=== PATIENT | female | born 1930 | race Caucasian/White ===

== ENCOUNTER 2017-02-21 12:13 | Inpatient (IN) | payer MEDICARE ==
[~2017-02-21] VITALS: Ht 172.7 cm; Wt 50.4 kg
[~2017-02-21 12:13] MED LIST: ACETAMINOPHEN325 MG PO; AMBIEN10 MG PO; AZELASTINE137 MCG/0. NASAL; BUMETANIDE0.5 MG PO; COUMADIN2.5 MG PO; COUMADIN5 MG PO; ELIQUIS2.5 MG PO; HYDROCODONE-APA1 TAB PO; METOPROLOL TART50 MG PO; PACERONE200 MG PO; PRAVACHOL80 MG PO; PROTONIX40 MG PO
[2017-02-21 13:54] LABS: BASOPHILS 0.1 % (0-2); EOSINOPHILS 1.1 % (0-7); HEMATOCRIT 35.2 % (36.0-48.0); IMMATURE GRANULOCYTES 0.2 % (0-5); LYMPHOCYTES 12.3 % (15-50); MCH 28.2 pg (26.0-34.0); MCHC 31.3 g/dL (31.0-37.0); MCV 90.3 fL (80.0-100.0); MEAN PLATELET VOLUME 8.3 fL (7.4-10.4); MONOCYTES 3.1 % (2-11); NEUTROPHILS 83.2 % (40-80); RDW 17.2 % (11.5-14.5); WBC 12.7 10x3/uL (4.8-10.8)
[2017-02-21 13:57] LABS: PLATELET COUNT 274 10x3/uL (130-400)
[2017-02-21 14:18] LABS: ALBUMIN 2.6 g/dL (3.4-5.0); ALKALINE PHOSPHATASE 121 U/L (46-116); ALT (SGPT) 22 U/L (10-68); BILIRUBIN - TOTAL 0.21 mg/dL (0.2-1.3); CALC OSMOLALITY 282 mosm/kg (275-300); CALCIUM 8.3 mg/dL (8.5-10.1); CARBON DIOXIDE 27.8 mmol/L (21.0-32.0); CHLORIDE - SERUM 106 mmol/L (98-107); CREATININE - SERUM 0.6 mg/dL (0.6-1.3); GLUCOSE 113 mg/dL (74-106); PROTEIN - SERUM 6.7 g/dL (6.4-8.2); SODIUM 141 mmol/L (136-145); UREA NITROGEN 14 mg/dL (7-18); eGFR NON AFRICAN AMERICAN > 90 mL/min (90-120)
[2017-02-21 14:36] LABS: CKMB 0.6 U/L (0.0-3.6); CREATINE KINASE 56 UL (21-215); TROPONIN-I < 0.017 ng/mL (0.000-0.060)
--- NOTE | 2017-02-21 21:53 | NUR ---
PT TO ROOM 1222 FROM ER VIA STRETCHER.PT IS WITHOUT DISTRESS.RIGHT ARM IN CAST.BRUISING NOTED TO LET HAND,LEFT EYE.ALSO BLOOD NOTED IN HAIR WITH ABRASIONS TO SCALP ON POSTERIOR HEAD.FAALL PREVENTION INITIATED.CALL LIGHT IN REACH.DOOR OPEN TO MONITOR.ASSESSMENT PER FLOW SHEET
[2017-02-21 22:04] VITALS: BP 129/59; BMI 17.6
[2017-02-22 05:23] LABS: BASOPHILS 0.2 % (0-2); EOSINOPHILS 1.2 % (0-7); HEMATOCRIT 32.2 % (36.0-48.0); IMMATURE GRANULOCYTES 0.2 % (0-5); LYMPHOCYTES 15.4 % (15-50); MCH 28.4 pg (26.0-34.0); MCHC 31.1 g/dL (31.0-37.0); MCV 91.5 fL (80.0-100.0); MEAN PLATELET VOLUME 8.3 fL (7.4-10.4); MONOCYTES 6.6 % (2-11); NEUTROPHILS 76.4 % (40-80); PLATELET COUNT 286 10x3/uL (130-400); RBC 3.52 10x6/uL (4.00-5.40); RDW 17.3 % (11.5-14.5); WBC 10.6 10x3/uL (4.8-10.8)
[2017-02-22 05:57] LABS: ALBUMIN 2.3 g/dL (3.4-5.0); ALKALINE PHOSPHATASE 109 U/L (46-116); ALT (SGPT) 19 U/L (10-68); BILIRUBIN - TOTAL 0.42 mg/dL (0.2-1.3); CALC OSMOLALITY 284 mosm/kg (275-300); CALCIUM 8.8 mg/dL (8.5-10.1); CARBON DIOXIDE 29.9 mmol/L (21.0-32.0); CHLORIDE - SERUM 106 mmol/L (98-107); CREATININE - SERUM 0.7 mg/dL (0.6-1.3); GLUCOSE 115 mg/dL (74-106); POTASSIUM - SERUM 3.9 mmol/L (3.5-5.1); PROTEIN - SERUM 6.7 g/dL (6.4-8.2); SODIUM 142 mmol/L (136-145); UREA NITROGEN 14 mg/dL (7-18); eGFR NON AFRICAN AMERICAN 84 mL/min (90-120)
--- NOTE | 2017-02-22 07:30 | NUR ---
INCONTINENT OF URINE. SKIN CARE PER STAFF. LINENS CHANGED. REPOSITIONED IN BED FOR COMFORT. LUNGS ARE CLEAR BILATERALLY, NO COUGH NOTED. SKIN IS INTACT WITHOUT REDNESS EXCEPT LACERATIONS TO LEFT EYE AND BACK OF HEAD. THERE IS ALSO AN OLD DECUB TO COCCYX AREA ALMOST HEALED WITH DRY DRESSING IN PLACE. SL TO LEFT FOREARM IS PATENT WITHOUT REDNESS AT INSERTION STIE. DENIES NEEDS AT THIS TIME.
[2017-02-22 08:26] VITALS: BP 115/50
--- NOTE | 2017-02-22 09:05 | NUR ---
REQUESTED AND GIVEN 0.5MG DILAUDID SLOW IVP FOR C/O PAIN TO RIGHT ARM LEVEL 8. WILL MONITOR.
--- NOTE | 2017-02-22 10:15 | NUR ---
REPORTS GOOD PAIN MANAGEMENT WITH USE OF DILAUDID. ASSISTED WITH BED GARZON PER STAFF. VOIDED DARK PAULINA ODIFEROUS URINE. SKIN CARE PER STAFF.
[2017-02-22 10:58] VITALS: Ht 172.7 cm; Wt 50.4 kg
--- NOTE | 2017-02-22 12:15 | NUR ---
LUNCH SERVED IN ROOM. FEEDS SELF WITH SOME SET UP ASSIST. DAUGHTER IN LAW AT BEDSIDE. SIGNED CONSENTS WITH PATIENTS PERMISSION.
--- NOTE | 2017-02-22 13:30 | NUR ---
HEAD SHAMPOOED TO REMOVE BLOOD. DID WELL WITH PAIN. REQUESTED AND GIVEN 0.5MG DILAUDID SLOW IVP AFTER COMPLETED. DENIES NEEDS.
[2017-02-22 16:40] VITALS: BP 133/60
--- NOTE | 2017-02-22 17:01 | NUR ---
REPORT CALLED TO IAM FARR RN ON MED SURG. WILL TRANSFER PATIENT TO ROOM 2234.
--- NOTE | 2017-02-22 17:29 | NUR ---
PT AOX4 RESP EVEN AND NONLABORED AT THIS TIME IV TO LEFT FOREARM PATENT AND INTACT AT THIS TIME SRX2 BED AT LOWEST SETTING CALL LIGHT WITHIN REACH WILL CONTINUE TO MONITOR
[2017-02-22 19:00] VITALS: BP 125/61
--- NOTE | 2017-02-22 23:17 | NUR ---
REC'D. CHGE OF SHIFT ASSISTED ON BEDPAN VOIDED WITHOUT DIFFICULTY.POSTERIOR SPLINT WITH ACEWRAP DRSG INTACT TO RIGHT ARM.VISIBLE FINGERS WITH MINIMAL SWELLING NOTED DENIES NUMBNESS WIGGLES ON COMMAND UP ON PILLOW, WILL CONTINUE TO MONITOR FOR ANY CHGES. IN NEUROVASCULAR STATUS AND FOLLOW CURRENT PLAN OF CARE.
[2017-02-23] VITALS (12 sets, daily range): BP systolic 109–187; BP diastolic 61–90
[2017-02-23 06:02] LABS: BASOPHILS 0.1 % (0-2); EOSINOPHILS 0.9 % (0-7); HEMATOCRIT 31.7 % (36.0-48.0); HEMOGLOBIN 9.9 g/dL (12-16); IMMATURE GRANULOCYTES 0.3 % (0-5); MCH 28.4 pg (26.0-34.0); MCHC 31.2 g/dL (31.0-37.0); MCV 91.1 fL (80.0-100.0); MEAN PLATELET VOLUME 8.5 fL (7.4-10.4); MONOCYTES 5.7 % (2-11); PLATELET COUNT 274 10x3/uL (130-400); RBC 3.48 10x6/uL (4.00-5.40); RDW 17.3 % (11.5-14.5)
[2017-02-23 06:12] LABS: WBC 14.5 10x3/uL (4.8-10.8)
[2017-02-23 06:46] LABS: ALBUMIN 2.3 g/dL (3.4-5.0); ALKALINE PHOSPHATASE 109 U/L (46-116); CALC OSMOLALITY 281 mosm/kg (275-300); CALCIUM 8.7 mg/dL (8.5-10.1); CHLORIDE - SERUM 104 mmol/L (98-107); CREATININE - SERUM 0.7 mg/dL (0.6-1.3); GLUCOSE 134 mg/dL (74-106); PROTEIN - SERUM 6.8 g/dL (6.4-8.2); SODIUM 140 mmol/L (136-145); UREA NITROGEN 14 mg/dL (7-18); eGFR NON AFRICAN AMERICAN 84 mL/min (90-120)
[2017-02-23 06:49] LABS: ALT (SGPT) 33 U/L (10-68)
--- NOTE | 2017-02-23 08:00 | NUR ---
PT AWAKE, DENIES NEEDS, LINENS AND GOWN CHANGED, BED LOWEST POSITION, CALL LIGHT IN REACH, WILL CONTINUE TO MONITOR
--- NOTE | 2017-02-23 08:31 | NUR ---
Patient Name: MARIAM ALFORD Admission Status: ER Accout number: [id number] Admission Date: 02-21-2017 : 1932 Admission Diagnosis: Attending: VEL MARTINS Current LOS: 2 Anticipated DC Date: 02-27-2017 Planned Disposition: Nursing Facility [facility] Primary Insurance: MEDICARE A & B Discharge Planning Comments: CM MET WITH PATIENT REGARDING D/C NEEDS AND PLANS. PATIENT STATED SHE LIVES AT [facility] AND WILL RETURN THERE AT DISCHARGE. PATIENT STATED SHE USES A WHEELCHAIR AT FACILITY. PATIENT HAS HELP WITH BATHING, DRESSING, TRANSFERRING, AND MEDS. PATIENTS PCP IS DR. ORELLANA AND PHARMACY IS IN HOUSE. CM WILL CONTINUE TO FOLLOW PATIENT WITH D/C NEEDS AND PLANS. PCP DR. ORELLANA IN HOUSE PHARMACY AMANDA GOMES (SON) [phone] OR [phone] Machine Turner: Ana Padilla Is the patient Alert and Oriented? Yes 0 * How many steps to enter\exit or inside your home? 0 0 * PCP DR. ORELLANA 0 * Pharmacy IN HOUSE 0 * Preadmission Environment Hairspring Vibrator Detention 0 * Facility Name [facility] 0 * ADLs Partial Dependent 0 * Partial ADLs (Assistance needed) Ambulation Bathing Dressing Medication Management Toileting Transfers 0 * Equipment Wheelchair 0 * List name and contact numbers for known caregivers / representatives who currently or will assist patient after discharge: AMANDA GOMES (SON) [phone] W [phone] * Community resources currently utilized None 0 * Additional services required to return to the preadmission environment? Yes 0 * Can the patient safely return to the preadmission environment? Yes 0 * Has this patient been hospitalized within the prior 30 days at any hospital? No 0 Grand Total: 0
--- NOTE | 2017-02-23 14:00 | NUR ---
[facility] FOR URINE SAMPLE, ONLY 15CC OF URINE CAME OUT, URINE SPECIMEN SENT TO LAB
[2017-02-23 14:53] LABS: APPEARANCE TURBID (CLEAR); BACTERIA MANY /hpf (NONE SEEN); BILIRUBIN NEGATIVE (NEGATIVE); COLOR TAN (YELLOW); EPITHELIAL CELLS 0-5 /hpf (0-5); GLUCOSE NEGATIVE (NEGATIVE); KETONE NEGATIVE (NEGATIVE); LEUKOCYTE ESTERASE 2+ (NEGATIVE); MUCUS <1+ /lpf (NONE SEEN); NITRITE NEGATIVE (NEGATIVE); PROTEIN 2+ mg/dL (NEGATIVE); SPECIFIC GRAVITY 1.015 (1.005-1.020); UROBILINOGEN NORMAL (NORMAL); WHITE CELLS - URINE >50 /hpf (0-5)
--- NOTE | 2017-02-23 16:08 | NUR ---
IV INFILTRATED TO THE LEFT FOREARM, REMOVED TIP INTACT, 22G PLACED LEFT FOREARM 1 STICK
--- NOTE | 2017-02-23 19:00 | NUR ---
REPORT RECEIVED AND CARE OF PT ASSUMED. PT IN SURGERY AT THIS TIME.
--- NOTE | 2017-02-23 19:35 | NUR ---
NOTIFIED ANETHESIA OF CONTINUOUS HYPERTENSTION IN PACU. VERBAL ORDER OF LABETALOL 5MG IV ONE TIME GIVEN. V.O.R.B CORRECT. WILL CONTINUE TO VERÓNICA PT
--- NOTE | 2017-02-23 20:04 | NUR ---
PT ARRIVED ON FLOOR FROM SURGERY.
--- NOTE | 2017-02-23 20:26 | NUR ---
HS MEDICATIONS GIVEN. SET UP LOAN INTERVIEWER MORTGAGE FOR PAIN CONTROL. BED ALARM IN USE FOR SAFETY.
--- NOTE | 2017-02-23 21:30 | NUR ---
PLACED ICE PACK ON RIGHT ARM PER ORDER.
--- NOTE | 2017-02-23 23:41 | NUR ---
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 PLACED MEPILEX HEART AND WILL TURN EVERY 2 HOURS.
[2017-02-24] VITALS (8 sets, daily range): BP systolic 118–180; BP diastolic 60–82
--- NOTE | 2017-02-24 01:26 | NUR ---
PT UNABLE TO VOID SINCE RETURNING FROM SURGERY DESPITE SEVERAL ATTEMPTS WITH BEDPAN. IN AND OUT CATHED PER ORDER, AND RECEIVED 450 ML OF PAULINA, MALODOROUS URINE. PT TOLERATED WELL. WILL CONTINUE TO MONITOR CLOSELY FOR NEEDS.
[2017-02-24 06:51] LABS: HEMATOCRIT 28.7 % (36.0-48.0); HEMOGLOBIN 9.2 g/dL (12-16); LYMPHOCYTES 9.2 % (15-50); MCH 28.6 pg (26.0-34.0); MCHC 32.1 g/dL (31.0-37.0); NEUTROPHILS 85.3 % (40-80); PLATELET COUNT 291 10x3/uL (130-400); RBC 3.22 10x6/uL (4.00-5.40); RDW 16.3 % (11.5-14.5)
[2017-02-24 06:58] LABS: MCV 89.1 fL (80.0-100.0)
[2017-02-24 07:11] LABS: ALBUMIN 2.1 g/dL (3.4-5.0); ALKALINE PHOSPHATASE 98 U/L (46-116); BILIRUBIN - TOTAL 0.35 mg/dL (0.2-1.3); CALC OSMOLALITY 279 mosm/kg (275-300); CALCIUM 8.1 mg/dL (8.5-10.1); CARBON DIOXIDE 27.7 mmol/L (21.0-32.0); CHLORIDE - SERUM 103 mmol/L (98-107); CREATININE - SERUM 0.7 mg/dL (0.6-1.3); GLUCOSE 122 mg/dL (74-106); POTASSIUM - SERUM 3.9 mmol/L (3.5-5.1); PROTEIN - SERUM 6.4 g/dL (6.4-8.2); SODIUM 139 mmol/L (136-145); UREA NITROGEN 16 mg/dL (7-18); eGFR NON AFRICAN AMERICAN 84 mL/min (90-120)
[2017-02-24 07:14] LABS: ALT (SGPT) 23 U/L (10-68)
--- NOTE | 2017-02-24 08:00 | NUR ---
PT AOX4 RESP EVEN AND NONLABORED IV TO LEFT FOREARM PATENT AND INTACT AT THIS TIME SRX2 BED AT LOWEST SETTING CALL LIGHT WITHIN REACH WILL CONTINUE TO MONITOR
--- NOTE | 2017-02-24 09:25 | OP ---
PATIENT NAME: MARIAM ALFORD MEDICAL RECORD: [id number] :32 LOCATION:D.MS [id number] ADMISSION DATE:02/21/17 SURGEON: KIM CASTAÑEDA MD DATE OF OPERATION: 02/23/2017 Orthopedic Surgery Operative Note PREOPERATIVE DIAGNOSIS: Spiral humeral fracture of the right arm. POSTOPERATIVE DIAGNOSIS: Spiral humeral fracture of the right arm. PROCEDURE: Open reduction internal fixation of spiral humeral fracture of the right arm. SURGEON: Kim Castañeda MD. ANESTHESIA: General. INTRAOPERATIVE COMPLICATIONS: None. SUMMARY OF PATHOLOGIC FINDINGS: Essentially none. It is of note, however, this patient did have a preoperative wrist drop and at the time of surgery. The radial nerve was found to be intact, but very attenuated. The long spike of the spiral fracture was indeed at the side of the radial nerve, likely causing this at the time of injury. It was protected during the operative case; however, it was in a fair to poor condition at the time of surgery. OPERATIVE SUMMARY IN DETAIL: After obtaining the appropriate preoperative orthopedic surgery consent as well as anesthetic consultation, evaluation and clearance, the patient was brought to the operating room and placed on the operating table in supine position. After adequate general laryngeal mask airway was administered, the patient was placed in a left lateral decubitus position. All pressure points were well padded to include down leg peroneal pad as well as axillary roll. The patient was held firmly to the operating table using the vacuum pack suction system as well as the strap system. Right upper extremity and shoulder were prepped and draped in routine sterile fashion. Incision by the posterior aspect of the humerus was taken down past the triceps, which was split and divided essentially. Dissection was carried down to the radial nerve as noted above was found. Red vessel loop was placed around it and used for protection during the case. The fracture was reduced anatomically, held in place with bone clamps. Serial and sequential cable fixation was utilized of 1.6 mm cables from [employer]. This resulted in excellent anatomic mandaen of the humerus in this patient with substantially osteoporotic bone. It is of note that the patient had a previous reversed total shoulder put in and the fracture went all the way to the base of this reverse total shoulder cement. After all cables were in place, final radiographs were taken and submitted for radiologist review. The wound was copiously irrigated. The triceps surae was closed with #1 Vicryl followed by 2-0 Vicryl and skin shawn. Sterile dressings were applied. The patient was awakened, taken to recovery room in stable condition. All final needle and sponge counts were correct. TRANSINT:[id number] Voice Confirmation ID: [id number] DOCUMENT ID: [id number] OPERATIVE REPORT [id number] MARIAM ALFORD MD, KIM GERMAIN at 0925 CC: [id number] DICTATION DATE: 02/23/172041 PERFORMANCE TEST ARCHITECT: 02/24/17 0111 ADM IN [facility] [address] [id number]
--- NOTE | 2017-02-24 19:00 | NUR ---
REPORT RECEIVED AND CARE OF PT ASSUMED. PT LYING IN SUPINE POSITON WITH LEGS OFF BED. POSITIONED BACK IN BED...BED ALARM IS IN PLACE. IV IN RIGHT FA PATENT WITH 1/2 NS INFUSING AT 50 ML / HR. DRESSING ON RIGHT ARM CLEAN AND DRY WITH SLING IN USE. WILL MONITOR CLOSLEY FOR NEEDS.
--- NOTE | 2017-02-24 20:00 | NUR ---
PT GIVEN BATH AND ALL LINENS CHANGED BY MANAGER TRAFFIC.
--- NOTE | 2017-02-24 20:41 | NUR ---
HS MEDICATIONS GIVEN TO INCLUDE TYLENOL 500 MG PO FOR ELEVATED TEMP OF 101.4 DEGREES. WILL MONITOR CLOSLEY FOR EFFECTIVENESS. BED ALARM IN USE.
--- NOTE | 2017-02-24 21:00 | NUR ---
ICE PACK PLACED ON RIGHT ARM PER ORDER.
--- NOTE | 2017-02-24 22:45 | NUR ---
PT BECOMING MORE CONFUSED AND TRYING TO CLIMB OVER BED RAIL. GAVE HALDOL 1 MG PO PER PRN ORDER. SAT WITH PT FOR A WHILE TO TRY TO RE-ORIENTATE. SHE STATES HER ARM IS NOT HURTING ANYMORE. WILL MONITOR CLOSLEY. BED ALARM IN USE.
[2017-02-25 00:08] VITALS: BP 100/60
--- NOTE | 2017-02-25 00:32 | NUR ---
TELEMETRY REPORTS HR AT 130 AND PT GOING INTO UNCONTROLLED A-FIB. CALLED DR MARTINS AND WAS TOLD THAT HE DOES NOT TAKE CALL AFTER 7 PM, AND TO CALL ER PHYSICIAN. ER PHSICIAN, DR MELVIN SAID THAT HE DOSN'T TAKE CARE OF CRITICAL CHANGES AND TO CALL DR MARTINS. TALKED TO ALBA VIZCAINO, GOLDBEATER...TOLD TO WORK ON GETTING FEVER DOWN. GAVE ANOTHER TYLENOL 500 MG PO. TOOK ALL BLANKETS OFF PT AND LEFT ONLY SHEET, AND LOWERED TEMP IN ROOM. WILL MONITOR MARIAA.
--- NOTE | 2017-02-25 00:52 | NUR ---
CALLED TELEMETRY FOR REPORT...PT BACK IN ST AT 103.
[2017-02-25 04:00] VITALS: BP 103/55
[2017-02-25 05:13] LABS: BASOPHILS 0.1 % (0-2); EOSINOPHILS 0.9 % (0-7); HEMATOCRIT 28.1 % (36.0-48.0); HEMOGLOBIN 8.5 g/dL (12-16); IMMATURE GRANULOCYTES 0.3 % (0-5); LYMPHOCYTES 8.6 % (15-50); MCH 27.4 pg (26.0-34.0); MCHC 30.2 g/dL (31.0-37.0); MCV 90.6 fL (80.0-100.0); MEAN PLATELET VOLUME 8.5 fL (7.4-10.4); MONOCYTES 5.2 % (2-11); NEUTROPHILS 84.9 % (40-80); PLATELET COUNT 314 10x3/uL (130-400); RDW 16.9 % (11.5-14.5); WBC 15.7 10x3/uL (4.8-10.8)
[2017-02-25 05:26] LABS: ALKALINE PHOSPHATASE 95 U/L (46-116); CALC OSMOLALITY 267 mosm/kg (275-300); CALCIUM 8.7 mg/dL (8.5-10.1); CARBON DIOXIDE 27.6 mmol/L (21.0-32.0); CHLORIDE - SERUM 100 mmol/L (98-107); CREATININE - SERUM 0.7 mg/dL (0.6-1.3); GLUCOSE 102 mg/dL (74-106); POTASSIUM - SERUM 3.4 mmol/L (3.5-5.1); PROTEIN - SERUM 6.2 g/dL (6.4-8.2); SODIUM 134 mmol/L (136-145); UREA NITROGEN 13 mg/dL (7-18); eGFR NON AFRICAN AMERICAN 84 mL/min (90-120)
[2017-02-25 05:31] LABS: ALT (SGPT) 16 U/L (10-68)
--- NOTE | 2017-02-25 07:38 | NUR ---
RESTING WITH EYES CLOSED. RESPONDS TO VERBAL STIMULATION. ORIENTED TO SELF. LUNGS ARE CLEAR BILATERALLY, NO COUGH NOTED. SKIN IS INTACT WITHOUT REDNESS EXCEPT INCISION TO RIGHT ARM, LAC TO LEFT SIDE OF FACE AND OLD STAGE 2 TO COCCYX AREA. IV TO LEFT FOREARM IS PATENT WITHOUT REDNESS AT INSERTION SITE. NO NEEDS NOTED.
--- NOTE | 2017-02-25 09:00 | NUR ---
ATE ALMOST HALF OF BREAKFAST THIS AM. SITTING UP IN BED TALKING WITH SON ON PHONE.
[2017-02-25 09:50] VITALS: BP 104/60
--- NOTE | 2017-02-25 10:30 | NUR ---
UP TO CHAIR AT BEDSIDE WITH PT. DOING WELL UP. NO C/O AT THIS TIME.
[2017-02-25 11:51] VITALS: BP 110/64
--- NOTE | 2017-02-25 12:15 | NUR ---
LUNCH SERVED IN ROOM. ATE OVER HALF OF MEAL PER SELF. REPOSITIONED IN BED FOR COMFORT.
--- NOTE | 2017-02-25 15:00 | NUR ---
RESTING QUIETLY IN BED. OSTOMY IS LEAKING. APPLIANCE CHANGED PER STAFF WITHOUT DIFFICULTY. STOMA IS PINK AND VIABLE. DENIES NEEDS.
[2017-02-25 16:20] VITALS: BP 104/54
--- NOTE | 2017-02-25 17:15 | NUR ---
SUPPER SERVED IN ROOM. ATE ALMOST ALL OF MEAL PER SELF. NO CHANGES NOTED. DENIES NEEDS.
--- NOTE | 2017-02-25 18:59 | NUR ---
IV TO LEFT AC LEAKING AND REDDENED. D/C WITH CATHETER INTACT. RESITED TO LEFT WRIST AREA AFTER ONE ATTEMPT WITH 22G.
--- NOTE | 2017-02-25 19:00 | NUR ---
REPORT RECEIVED AND CARE OF PT ASSUMED. PT LYING IN SUPINE POSITION WITY EYES CLOSED. IV IN LEFT WRIST PATENT WITH 1/2 NS INFUSING AT 50 ML /HR. WILL MONITOR LALEY FOR NEEDS.
[2017-02-25 20:00] VITALS: BP 166/52
--- NOTE | 2017-02-25 21:19 | NUR ---
HS MEDICATIONS GIVEN TO INCLUDE HALDOL PER PRN ORDER FOR CONFUSION. WILL CONTINUE TO MONITOR FOR NEEDS.
[2017-02-26] VITALS: BP 113/54
--- NOTE | 2017-02-26 00:29 | NUR ---
PT RESTING QUIETLY AT THIS TIME. SHE HAS BEEN LESS INCONTINENT THIS SHIFT AND HAS BEEN CALLING FOR A BEDPAN. WILL CONTINUE TO MONITOR FOR NEEDS.
[2017-02-26 04:00] VITALS: BP 91/5
[2017-02-26 05:20] LABS: BASOPHILS 0.1 % (0-2); EOSINOPHILS 1.9 % (0-7); HEMATOCRIT 25.6 % (36.0-48.0); HEMOGLOBIN 7.8 g/dL (12-16); IMMATURE GRANULOCYTES 0.2 % (0-5); MCH 27.6 pg (26.0-34.0); MCHC 30.5 g/dL (31.0-37.0); MCV 90.5 fL (80.0-100.0); MEAN PLATELET VOLUME 8.4 fL (7.4-10.4); MONOCYTES 4.6 % (2-11); NEUTROPHILS 80.2 % (40-80); PLATELET COUNT 319 10x3/uL (130-400); RBC 2.83 10x6/uL (4.00-5.40); RDW 16.7 % (11.5-14.5); WBC 13.4 10x3/uL (4.8-10.8)
[2017-02-26 05:50] LABS: ALBUMIN 1.7 g/dL (3.4-5.0); ALKALINE PHOSPHATASE 83 U/L (46-116); ALT (SGPT) 14 U/L (10-68); CALC OSMOLALITY 270 mosm/kg (275-300); CALCIUM 8.3 mg/dL (8.5-10.1); CARBON DIOXIDE 26.9 mmol/L (21.0-32.0); CHLORIDE - SERUM 102 mmol/L (98-107); CREATININE - SERUM 0.6 mg/dL (0.6-1.3); GLUCOSE 93 mg/dL (74-106); POTASSIUM - SERUM 3.6 mmol/L (3.5-5.1); PROTEIN - SERUM 5.7 g/dL (6.4-8.2); SODIUM 135 mmol/L (136-145); UREA NITROGEN 15 mg/dL (7-18); eGFR NON AFRICAN AMERICAN > 90 mL/min (90-120)
--- NOTE | 2017-02-26 07:35 | NUR ---
SLEEPING, BREATHING EVEN UNLABORED, BED LOWEST POSITION, CALL LIGHT IN REACH, WILL CONTINUE TO MONITOR
[2017-02-26 08:00] VITALS: BP 105/54
[2017-02-26 11:00] VITALS: BP 118/59
--- NOTE | 2017-02-26 14:16 | NUR ---
Rehab Note- Acute Rehab Prescreen order received. The patient had a fall with a humeral fracture. She resides at [facility], and states she has about 7 years now. Spoke with the patient and she staed that she plans on returning to [facility] upon discharge from the acute hospital. She has a pending cardiology consult at this time. Thank you for this referral! Preeti Powell RN Clinical Liaison, [facility]
[2017-02-26 18:23] VITALS: BP 126/62
--- NOTE | 2017-02-26 19:00 | NUR ---
REPORT RECEIVED AND CARE OF PT ASSUMED. PT LYING IN SEMI MONTOYA'S POSITION WITH EYES CLOSED. IV IN LEFT WRIST PATENT WITH 1/2 NS INFUSING AT 30 ML / HR. ORTHOPEDICS TEACHER / DILAUDID IN USE FOR PAIN CONTROL. TELEMETRY IN PLACE AND READING 73 SR 2/ BBB AT THIS ASSESSMENT. COLOSTOMY WITH NO STOOL IN BAG AT THIS CHECK.
[2017-02-26 20:00] VITALS: BP 101/48
--- NOTE | 2017-02-26 21:04 | NUR ---
HS MEDICATIONS GIVEN TO INCLUDE HALDOL PER PRN ORDER FOR CONFUSION. WILL CONTINUE TO MONITOR FOR NEEDS. CALL LIGHT WITHIN REACH.
--- NOTE | 2017-02-26 22:05 | NUR ---
REPOSITIONED PT FOR COMFORT, TURNING ONTO LEFT SIDE PER TURN SCHEDULE. ICE PACK PLACED ON RIGHT ARM. ASSISTED PT IN PRESSING ROAD MANAGER FOR PAIN. BED ALARM IN USE.
[2017-02-27] VITALS (14 sets, daily range): BP systolic 110–176; BP diastolic 45–66
--- NOTE | 2017-02-27 02:35 | NUR ---
PT BATHED AND ALL LINENS AND GOWN CHANGED. CHANGED DRESSING ON RIGHT ARM, PT HAD PARTIALLY TAKEN OFF. INCISION WELL APPROXIMATED WITH KAROLINE WITHOUT REDNESS OR DRAINAGE. CHANGED COLOSTOMY APPLIANCE. STOMA PINK AND MOIST. PLACED MEPILEX DRESSING ON COCCYX, COCCYX IS HEALING, BUT STILL REDDENED. REPLACED TELEMETRY LEADS. PT POSITIONED FOR COMFORT WITH PILLOW SUPPORT ON THE RIGHT SIDE AND HEELS BRIDGED. BED ALARM IN USE.
--- NOTE | 2017-02-27 02:52 | NUR ---
GAVE HALDOL 1 MG PO PER PRN ORDER FOR AGGITATION AND CONFUSION. WILL CONTINUE TO MONITOR FOR NEEDS. BED ALARM IN USE.
[2017-02-27 04:13] LABS: BASOPHILS 0.1 % (0-2); EOSINOPHILS 2.6 % (0-7); HEMOGLOBIN 7.9 g/dL (12-16); IMMATURE GRANULOCYTES 0.2 % (0-5); LYMPHOCYTES 17.6 % (15-50); MCH 28.5 pg (26.0-34.0); MCHC 31.6 g/dL (31.0-37.0); MCV 90.3 fL (80.0-100.0); MEAN PLATELET VOLUME 8.4 fL (7.4-10.4); MONOCYTES 4.6 % (2-11); NEUTROPHILS 74.9 % (40-80); PLATELET COUNT 321 10x3/uL (130-400); RBC 2.77 10x6/uL (4.00-5.40); RDW 16.5 % (11.5-14.5); WBC 10.5 10x3/uL (4.8-10.8)
[2017-02-27 04:23] LABS: CALC OSMOLALITY 278 mosm/kg (275-300); CALCIUM 8.5 mg/dL (8.5-10.1); CHLORIDE - SERUM 105 mmol/L (98-107); CREATININE - SERUM 0.6 mg/dL (0.6-1.3); GLUCOSE 96 mg/dL (74-106); POTASSIUM - SERUM 3.3 mmol/L (3.5-5.1); SODIUM 140 mmol/L (136-145); UREA NITROGEN 13 mg/dL (7-18); eGFR NON AFRICAN AMERICAN > 90 mL/min (90-120)
--- NOTE | 2017-02-27 05:29 | NUR ---
PER ELECTROLYTE PROTOCOL GAVE 40 MEQ PO POTASSIUM. WILL RE-CHECK LEVEL IN 4 HOURS.
--- NOTE | 2017-02-27 07:05 | NUR ---
PT ASLEEP WITH NO VISABLE SIGNS OF PAIN OR DISCOMFORT AT THIS TIME. BED IN LOW POSITION AND CALL LIGHT WITHIN REACH. WILL CONTINUE TO MONIOR.
--- NOTE | 2017-02-27 10:28 | CN ---
PATIENT NAME:MARIAM ALFORD MEDICAL RECORD: [id number] : 32 LOCATION:D.MS [place] ADMIT DATE: 02/21/17 ACCOUNT: [id number] CONSULTING PHYSICIAN: MARGI LEUNG MD REFERRING PHYSICIAN: VEL MARTINS MD DATE OF CONSULTATION: 02/26/2017 HISTORY OF PRESENT ILLNESS: An 86-year-old longterm resident with apparently history of atrial fibrillation on amiodarone at the longterm. I reviewed the history at this point. The patient had post humeral fracture repair. Had an episode of postoperative atrial fibrillation spontaneously converted to normal sinus rhythm. She is on maintenance amiodarone. We have to see her concerning her cardiovascular status. PAST MEDICAL HISTORY: Per chart includes: 1. History of hypertension. 2. Hyperlipidemia. 3. Colon cancer. 4. Atrial fibrillation. 5. Pulmonary embolus. 6. Recurrent UTIs. MEDICATIONS: On transfer from the longterm include Coumadin per scale, Lopressor 25 b.i.d., amiodarone 300 q. day, pravastatin 80 q. day, Bluford 10/325 q.4 hours p.r.n., Ambien 10 at bedtime, Bumex 0.5. q. day, Protonix 40 q. day. ALLERGIES: None known. SOCIAL HISTORY: prison resident. REVIEW OF SYSTEMS: Unobtainable due to the patient factors. PHYSICAL EXAMINATION: GENERAL: Sedated. No acute distress. VITAL SIGNS: Blood pressure 105/54, pulse 60 and regular. HEENT: Some ecchymosis over the left orbital region. NECK: No bruits. HEART: Regular, II/ systolic ejection murmur. LUNGS: Good air excursion. ABDOMEN: Soft, nontender. EXTREMITIES: Pulses are preserved, 1+ with no edema. NEUROLOGIC: Unobtainable. DIAGNOSTIC DATA: ECG baseline essentially normal. IMPRESSION: Atrial fibrillation with a breakthrough. We would restart her amiodarone at this point. We would not be surprised given recent surgery, etc. to have occasional breakthrough, although as long as she is on Coumadin, so SCD prophylaxis already on board. TRANSINT:[id number] Voice Confirmation ID: [id number] DOCUMENT ID: [id number] CONSULT REPORT [id number] PRASHANTHMARIAM DURON MARGI LEUNG MD at 1028 CC: [id number] DICTATION DATE: 02/26/17 1016 INSIDE CONTRACTOR SALES: 02/26/17 1045 ADM IN [id number] [place] [address]
--- NOTE | 2017-02-27 19:35 | NUR ---
RECIEVED SHIFT REPORT. PT IS LYING IN BED. ALERT AND ORIENTED AND ABLE TO VERBALIZE NEEDS. IV IS PATENT AND FLUIDS ARE RUNNING PER ORDER. DRESSING TO RIGHT ARM C/D/I AND SLING NOTED. PT STATES PAIN IS 7/10. PT REQUIRES SOME ASSISTANCE TURNING IN BED FOR COMFORT AND SKIN CARE. NO NEEDS ARE VERBALIZED AT THIS TIME. WILL CONTINUE TO MONITOR. SIDE RAILS ARE UP X 2. BED IS IN LOWEST POSITION. BED ALARM IS ON FOR SAFETY. CALL LIGHT IS WITHIN REACH.
--- NOTE | 2017-02-27 20:20 | NUR ---
PRBC'S INITIATED BY DAY SHIFT NURSE. VSS. WILL MONITOR.
--- NOTE | 2017-02-27 20:35 | NUR ---
PRBC'S INFUSING. VSS. NO SIGNS OF REACTION. WILL MONITOR. SIDE RAILS X 2. BED LOW. BED ALARM ON. CALL LIGHT IN REACH.
--- NOTE | 2017-02-27 20:50 | NUR ---
PT STILL REMAINS W/O REACTION AT THIS TIME. VSS. WILL MONITOR. SIDE RAILS X 2. BED LOW. BED ALARM ON. CALL LIGHT IN REACH.
--- NOTE | 2017-02-27 21:22 | NUR ---
SHIFT ASSESSMENT COMPLETED. NIGHT MEDS GIVEN WITH NO PROBLEMS. PT C/O PAIN 01/09. ADMNISTERED PRESCRIBED PRN NORCO PER ORDER. DENIES FURTHER NEEDS. WILL MONITOR. SIDE RAILS X 2. BED LOW. CALL LIGHT IN REACH.
--- NOTE | 2017-02-27 22:25 | NUR ---
PRBC'S FINISHED AT THIS TIME AND LINE FLUSHING. PT REMAINED W/O REACTION AND VSS. SIDE RAILS X 2. BED LOW. BED ALARM ON. CALL LIGHT IN REACH.
[2017-02-28 03:59] VITALS: BP 115/61
[2017-02-28 06:36] LABS: BASOPHILS 0.2 % (0-2); EOSINOPHILS 2.9 % (0-7); HEMATOCRIT 29.1 % (36.0-48.0); HEMOGLOBIN 9.3 g/dL (12-16); IMMATURE GRANULOCYTES 0.4 % (0-5); LYMPHOCYTES 10.9 % (15-50); MCH 28.4 pg (26.0-34.0); MONOCYTES 4.2 % (2-11); NEUTROPHILS 81.4 % (40-80); PLATELET COUNT 344 10x3/uL (130-400); RBC 3.27 10x6/uL (4.00-5.40); RDW 16.5 % (11.5-14.5); WBC 11.1 10x3/uL (4.8-10.8)
[2017-02-28 06:59] LABS: ALBUMIN 1.8 g/dL (3.4-5.0); ALKALINE PHOSPHATASE 89 U/L (46-116); ALT (SGPT) 14 U/L (10-68); CALC OSMOLALITY 279 mosm/kg (275-300); CALCIUM 8.6 mg/dL (8.5-10.1); CARBON DIOXIDE 26.6 mmol/L (21.0-32.0); CHLORIDE - SERUM 106 mmol/L (98-107); CREATININE - SERUM 0.7 mg/dL (0.6-1.3); GLUCOSE 95 mg/dL (74-106); POTASSIUM - SERUM 3.7 mmol/L (3.5-5.1); PROTEIN - SERUM 5.9 g/dL (6.4-8.2); SODIUM 141 mmol/L (136-145); UREA NITROGEN 11 mg/dL (7-18); eGFR NON AFRICAN AMERICAN 84 mL/min (90-120)
--- NOTE | 2017-02-28 07:27 | NUR ---
PT LAYING FLAT IN BED REQUESTS TO BE PLACED ON BED GARZON, DONE. PT INSTRUCTED TO CALL WHEN FINISHED WILL CONT TO MONITOR
--- NOTE | 2017-02-28 07:38 | NUR ---
PT REFUSED TX AT 0734.
[2017-02-28 07:59] LABS: MAGNESIUM - SERUM 1.8 mg/dL (1.8-2.4); PHOSPHOROUS 3.3 mg/dL (2.5-4.9)
[2017-02-28 09:24] VITALS: BP 145/68
[2017-02-28 10:14] LABS: APPEARANCE CLOUDY (CLEAR); BILIRUBIN NEGATIVE (NEGATIVE); COLOR YELLOW (YELLOW); GLUCOSE NEGATIVE (NEGATIVE); KETONE NEGATIVE (NEGATIVE); LEUKOCYTE ESTERASE 2+ (NEGATIVE); NITRITE NEGATIVE (NEGATIVE); PROTEIN TRACE mg/dL (NEGATIVE); SPECIFIC GRAVITY 1.005 (1.005-1.020); UROBILINOGEN NORMAL (NORMAL)
[2017-02-28 10:19] LABS: EPITHELIAL CELLS 0-5 /hpf (0-5); MUCUS <1+ /lpf (NONE SEEN); WHITE CELLS - URINE >50 /hpf (0-5)
[2017-02-28 10:20] LABS: BACTERIA FEW /hpf (NONE SEEN)
--- NOTE | 2017-02-28 13:31 | NUR ---
PT FREQUENTLY URINATING IS CONTINENT OF URINE. URINE IS DARK AND CLOUDY, CONCENTRATED. IFTIHKAR MOE IS AWARE. PT IS ON ABX FOR THIS. PT WITH R ARM SPLINT THAT WAS APPLIED TODAY FROM [facility] (FORM SHON MCKEON IS SIGNED AND ON THE CHART), PT ALSO WITH SLING. PT USES CALL LIGHT TO CALL FOR HELP WITH BATHROOM ASSISTANCE OR OTHER NEEDS, BUT DOES HAVE BA ON AND PATENT.
[2017-02-28 14:02] VITALS: BP 144/67
--- NOTE | 2017-02-28 14:25 | NUR ---
NUTRITION MONITORING & EVAL CHART REVIEWED, PT VISIT. TOLERATING REG DIET WITH ~50% INTAKE. WILL CONTINUE TO PROVIDE DIET, MONITOR PO INTAKE. RD FOLLOWING
[2017-02-28 16:20] VITALS: BP 120/55
--- NOTE | 2017-02-28 18:15 | NUR ---
OT NOTE: PT COMPLETED LUE AROM EXS FOR INCREASED ACTIVITY TOLERANCE. PT COMPLETED SIMPLE GROOMING WITH SET UP. MORGAN TITUS COTA/Nilson
--- NOTE | 2017-02-28 18:21 | NUR ---
PT SITTING UP IN BED DENIES ANY NEEDS AT THIS TIME. WATCHING TV
--- NOTE | 2017-02-28 19:07 | NUR ---
PT REFUSED THE TREATMENT
--- NOTE | 2017-02-28 19:30 | NUR ---
RECIEVED SHIFT REPORT. PT IS LYING IN BED. ALERT AND ORIENTED AND ABLE TO VERBALIZE NEEDS. IV IS PATENT AND FLUIDS ARE RUNNING PER ORDER. PT IS ABLE TO ASSIST IN TURNING IN BED FOR COMFORT AND SKIN CARE. DRESSING TO LEFT ARM C/D/I AND SLING IN PLACE. PT STATES PAIN IS 7/10. NO NEEDS ARE VERBALIZED AT THIS TIME. WILL CONTINUE TO MONITOR. SIDE RAILS ARE UP X 2. BED IS IN LOWEST POSITION. BED ALARM IS ON FOR SAFETY. CALL LIGHT IS WITHIN REACH.
[2017-02-28 20:00] VITALS: BP 152/76
--- NOTE | 2017-02-28 21:27 | NUR ---
SHIFT ASSESSMENT COMPLETED. NIGHT MEDS GIVEN WITH NO PROBLEMS. PT C/O PAIN 02/09. ADMINISTERED PRESCRIBED PRN NORCO PER ORDER. DENIES FURTHER NEEDS. WILL MONITOR. SIDE RAILS X 2. BED LOW. BED ALARM ON. CALL LIGHT IN REACH.
[2017-03-01 04:00] VITALS: BP 149/69
[2017-03-01 05:57] LABS: BASOPHILS 0.2 % (0-2); EOSINOPHILS 3.2 % (0-7); HEMATOCRIT 29.8 % (36.0-48.0); HEMOGLOBIN 9.6 g/dL (12-16); IMMATURE GRANULOCYTES 0.3 % (0-5); LYMPHOCYTES 12.1 % (15-50); MCH 28.5 pg (26.0-34.0); MCHC 32.2 g/dL (31.0-37.0); MCV 88.4 fL (80.0-100.0); MEAN PLATELET VOLUME 8.2 fL (7.4-10.4); MONOCYTES 4.7 % (2-11); NEUTROPHILS 79.5 % (40-80); PLATELET COUNT 371 10x3/uL (130-400); RBC 3.37 10x6/uL (4.00-5.40); RDW 16.6 % (11.5-14.5); WBC 11.9 10x3/uL (4.8-10.8)
[2017-03-01 06:21] LABS: ALBUMIN 1.9 g/dL (3.4-5.0); ALKALINE PHOSPHATASE 90 U/L (46-116); ALT (SGPT) 14 U/L (10-68); CALC OSMOLALITY 277 mosm/kg (275-300); CALCIUM 8.7 mg/dL (8.5-10.1); CARBON DIOXIDE 25.9 mmol/L (21.0-32.0); CHLORIDE - SERUM 106 mmol/L (98-107); CREATININE - SERUM 0.7 mg/dL (0.6-1.3); GLUCOSE 92 mg/dL (74-106); MAGNESIUM - SERUM 1.8 mg/dL (1.8-2.4); PHOSPHOROUS 3.2 mg/dL (2.5-4.9); POTASSIUM - SERUM 3.4 mmol/L (3.5-5.1); PROTEIN - SERUM 6.1 g/dL (6.4-8.2); SODIUM 140 mmol/L (136-145); UREA NITROGEN 10 mg/dL (7-18); eGFR NON AFRICAN AMERICAN 84 mL/min (90-120)
--- NOTE | 2017-03-01 07:55 | NUR ---
ASSISTED PT ONTO BEDPAN AT THIS TIME. LINENS NOTED TO BE WET. FULL LINEN CHANGE PERFORMED. CALL LIGHT IN REACH, WILL CONTINUE WITH PLAN OF CARE.
[2017-03-01 08:21] VITALS: BP 151/66
--- NOTE | 2017-03-01 09:08 | NUR ---
SCHEDULED MEDICATIONS ADMINISTERED AT THIS TIME. BED ALARM ON AND ASSESSMENT COMPLETE. CALL LIGHT IN REACH. WILL CONTINUE WITH PLAN OF CARE.
[2017-03-01 12:00] VITALS: BP 145/68
[2017-03-01] MEDS ORDERED: HYDROCODONE-APA1 TAB PO (12:15)
--- NOTE | 2017-03-01 13:30 | NUR ---
ASSISTED BACK TO BED PER PHYSICAL THERAPY AT THIS TIME. PT TO D/C BACK TO NURSING FACILITY TODAY.
--- NOTE | 2017-03-01 14:21 | NUR ---
PRN NORCO ADMINISTERED FOR PAIN AT THIS TIME. DRESSING TO RIGHT ARM CHANGED AT THIS TIME. IV TO LEFT WRIST D/C WITH CATH TIP INTACT. WILL D/C TO NURSING FACILITY TODAY.
[2017-03-01] MEDS ORDERED: BACTRIM DS TABL1 TAB PO (14:29)
[2017-03-01] MEDS ORDERED: OMNICEF300 MG PO (14:29)
--- NOTE | 2017-03-01 14:37 | NUR ---
CM REASSESSMENT NOTE: PATIENT IS DISCHARGING BACK TO [facility] BY FACILITY [facility]. PATIENT WILL GO BACK ON HOSPICE PER YANCI AT [facility].
--- NOTE | 2017-03-01 15:25 | NUR ---
REPORT CALLED TO KAREN SAMSON AT [facility].
--- NOTE | 2017-03-01 15:35 | NUR ---
D/C BACK TO [facility] AT THIS TIME.
== END 2017-03-01 15:35 | disposition home health service (06) | DRG 492 ==
LOC: D.ER 12:13 → D.MS 20:17 → D.WS 20:17 → D.MS 02-22 17:18 → D.SDCHOLD 02-23 21:21 → D.MS 02-23 21:22 → D.SDCHOLD 02-23 21:25 → D.MS 02-23 21:26
PROVIDERS: Family Medicine; Orthopaedic Surgery; ADMIT Family Medicine
PROC: 0PSF04Z Reposition Right Humeral Shaft with Internal Fixation Device, Open Approach (ICD-10-PCS; principal; 2017-02-23 15:15)
DX: S42.341A Displaced spiral fracture of shaft of humerus, right arm, initial encounter for closed fracture (principal); R53.2 Functional quadriplegia; D62 Acute posthemorrhagic anemia; J98.11 Atelectasis; W19.XXXA Unspecified fall, initial encounter; Y92.129 Unspecified place in nursing home as the place of occurrence of the external cause; M21.331 Wrist drop, right wrist; I09.9 Rheumatic heart disease, unspecified; I10 Essential (primary) hypertension; E78.5 Hyperlipidemia, unspecified; R51 Headache; M19.90 Unspecified osteoarthritis, unspecified site; M81.0 Age-related osteoporosis without current pathological fracture; Z85.038 Personal history of other malignant neoplasm of large intestine; Z93.3 Colostomy status; I48.91 Unspecified atrial fibrillation

== ENCOUNTER 2017-03-12 15:59 | Inpatient (IN) | payer MEDICARE ==
[~2017-03-12] VITALS: Ht 172.7 cm; Wt 59.0 kg
[~2017-03-12 15:59] MED LIST changes: +BACTRIM DS TABL1 TAB PO; +OMNICEF300 MG PO
[2017-03-12 17:55] LABS: BASOPHILS 0.2 % (0-2); EOSINOPHILS 2.3 % (0-7); HEMATOCRIT 34.1 % (36.0-48.0); HEMOGLOBIN 10.6 g/dL (12-16); IMMATURE GRANULOCYTES 0.2 % (0-5); LYMPHOCYTES 17.9 % (15-50); MCH 28.8 pg (26.0-34.0); MCHC 31.1 g/dL (31.0-37.0); MCV 92.7 fL (80.0-100.0); MONOCYTES 4.7 % (2-11); NEUTROPHILS 74.7 % (40-80); PLATELET COUNT 376 10x3/uL (130-400); RBC 3.68 10x6/uL (4.00-5.40); RDW 17.1 % (11.5-14.5); WBC 13.3 10x3/uL (4.8-10.8)
[2017-03-12 18:07] LABS: APTT 28.6 SECONDS (22.8-39.4); INR 1.03 (0.85-1.17); PROTIME 13.4 SECONDS (11.6-15.0)
[2017-03-12 18:16] LABS: ALBUMIN 2.6 g/dL (3.4-5.0); ANION GAP 12.7 mmol/L (8-16); BILIRUBIN - TOTAL 0.21 mg/dL (0.2-1.3); CALCIUM 9.1 mg/dL (8.5-10.1); CARBON DIOXIDE 28.1 mmol/L (21.0-32.0); CREATININE - SERUM 1.1 mg/dL (0.6-1.3); POTASSIUM - SERUM 4.8 mmol/L (3.5-5.1)
[2017-03-12 20:17] LABS: APPEARANCE HAZY (CLEAR); COLOR YELLOW (YELLOW); GLUCOSE NEGATIVE (NEGATIVE); KETONE NEGATIVE (NEGATIVE); LEUKOCYTE ESTERASE 2+ (NEGATIVE); NITRITE NEGATIVE (NEGATIVE); PROTEIN NEGATIVE (NEGATIVE)
[2017-03-12 20:18] LABS: BILIRUBIN 1+ (NEGATIVE); UROBILINOGEN NORMAL (NORMAL)
[2017-03-12 20:25] LABS: BACTERIA MANY /hpf (NONE SEEN); EPITHELIAL CELLS 0-5 /hpf (0-5); RED CELLS - URINE 0-5 /hpf (0-5); WHITE CELLS - URINE >50 /hpf (0-5)
--- NOTE | 2017-03-12 20:45 | NUR ---
REC'D TO ROOM 2209 VIA STRETCHER FROM THE ER ACCOMPAINED BY ER STAFF.ALERT AND ORIENTED. NO C/O NOTED OR VOICED. ASSISTANCE GIVEN WITH TRANSFER FROM STRETCHER. ASSESSMENT COMPLETED. RIGHT ARM SPLINTED AND ELEVATED ON PILLOW. PT ORIENTED TO CALL LIGHT SYSTEM. C/L IN REACH AT BEDSIDE.
[2017-03-13] VITALS (11 sets, daily range): BP systolic 83–125; BP diastolic 48–62; Ht 172.7 cm; Wt 59.0 kg
[2017-03-13] MEDS ORDERED: VITAMIN D2000 UNIT PO (03:05)
[2017-03-13] MEDS ORDERED: CALCIUM 600 +1 EAC3 PO (03:06)
[2017-03-13 05:22] LABS: BASOPHILS 0.2 % (0-2); EOSINOPHILS 2.2 % (0-7); HEMATOCRIT 32.1 % (36.0-48.0); HEMOGLOBIN 9.9 g/dL (12-16); IMMATURE GRANULOCYTES 0.2 % (0-5); LYMPHOCYTES 15.3 % (15-50); MCH 28.1 pg (26.0-34.0); MCHC 30.8 g/dL (31.0-37.0); MCV 91.2 fL (80.0-100.0); MEAN PLATELET VOLUME 8.2 fL (7.4-10.4); MONOCYTES 4.4 % (2-11); NEUTROPHILS 77.7 % (40-80); PLATELET COUNT 379 10x3/uL (130-400); RBC 3.52 10x6/uL (4.00-5.40); WBC 12.6 10x3/uL (4.8-10.8)
--- NOTE | 2017-03-13 07:10 | NUR ---
SLEEPING AT THIS TIME, POSITIONED ON LEFT SIDE. RESPIRATIONS EVEN AND NON LABORED. SCD'S AND BED ALARM ON. REMAINS NPO. CALL LIGHT IN REACH, WILL CONTINUE WITH PLAN OF CARE.
--- NOTE | 2017-03-13 08:13 | NUR ---
TELEPHONE CONSENT RECEIVED FROM PT'S SON/POA AMANDA GOMES FOR SCHEDULED SURGERY TODAY. CONSENT WITNESSED BY TAWNY CURRIE RN.
--- NOTE | 2017-03-13 09:04 | NUR ---
PRN MORPHINE AND ZOFRAN ADMINISTERED AT THIS TIME FOR PAIN 02/09. REMAINS NPO FOR SURGERY. BED ALARM ON AND CALL LIGHT IN REACH. WILL CONTINUE WITH PLAN OF CARE.
--- NOTE | 2017-03-13 12:10 | NUR ---
ICE PACK PROVIDED FOR PT'S RIGHT ARM D/T PAIN. REMAINS NPO FOR SURGERY.
--- NOTE | 2017-03-13 12:40 | NUR ---
TAKEN TO HOLDING AREA AT THIS TIME. PRE OPERATIVE MEDICATIONS GIVEN AND SON NOTIFIED.
[2017-03-13 15:01] LABS: HEMATOCRIT 30.6 % (36.0-48.0); HEMOGLOBIN 9.4 g/dL (12-16)
--- NOTE | 2017-03-13 16:15 | NUR ---
REPORT RECEIVED FROM ALBA JOHNSON AT THIS TIME. WILL AWAIT FOR PT TO RETURN TO [id number].
--- NOTE | 2017-03-13 17:00 | NUR ---
UNIT OF BLOOD STARTED AT THIS TIME AND WITNESSED BY ALBA DOUGLAS.
--- NOTE | 2017-03-13 17:30 | NUR ---
BLOOD INFUSING WITHOUT PROBLEM AT 150 ML/HR. IV REMAINS PATENT AND PT DENIES NEEDS. BED ALARM ON AND CALL LIGHT IN REACH. WILL CONTINUE WITH PLAN OF CARE.
--- NOTE | 2017-03-13 18:36 | NUR ---
IV TO LEFT UPPER ARM D/C BY PT WITH CATH TIP INTACT. HALF OF BLOOD TRANSFUSION IN. PT REFUSES TO HAVE ANOTHER IV STARTED TO COMPLETE UNIT OF BLOOD.
--- NOTE | 2017-03-13 19:30 | NUR ---
REPORT RECEIVED FROM F[employer]ERGLASS BOAT PARTS FINISHER NURSE. CALL LIGHT IN REACH.
--- NOTE | 2017-03-13 20:00 | NUR ---
ASSESSMENT COMPLETED. CONFUSED. BED ALARM ON. REFUSES TO WEAR SCDs. CALL LIGHT IN REACH. WILL CONTINUE WITH PLAN OF CARE.
--- NOTE | 2017-03-13 22:15 | NUR ---
HELD LOPRESSOR D/T LOW BP. NORCO PO PER YELLING AND SCREAMING. ICE PACK REFILLED AND PLACED TO RIGHT ARM. REPOSITIONED FOR COMFORT. CALL LIGHT IN REACH.
[2017-03-14] VITALS: BP 112/55
--- NOTE | 2017-03-14 00:23 | NUR ---
IN BED WITH EYES CLOSED. RESP EVEN AND UNLABORED. CALL LIGHT IN REACH. BED ALARM ON.
--- NOTE | 2017-03-14 02:47 | NUR ---
RESTING WITH EYES CLOSED. RESP EVEN AND UNLABORED. CALL LIGHT IN REACH.
--- NOTE | 2017-03-14 02:47 | NUR ---
EYES CLOSED RESPIRATIONS WITH EASE AND UNLABORED. SR UP X2 CALL LIGHT WITHIN REACH.
--- NOTE | 2017-03-14 03:11 | NUR ---
EYES CLOSED RESPIRATIONS WITH EASE AND UNLABORED. SR UP X2 CALL LIGHT WITHIN REACH.
--- NOTE | 2017-03-14 03:11 | NUR ---
SCREAMING OUT AGAIN. PAIN PILL GIVEN REFUSING TO ALLOW AN ICE PACK ON ARM.
[2017-03-14 04:00] VITALS: BP 110/60
[2017-03-14 05:14] LABS: HEMATOCRIT 31.1 % (36.0-48.0)
--- NOTE | 2017-03-14 05:20 | NUR ---
CHAYOG REINFORCED BECAUSE PATIENT WAS ATTEMPTING TO TAKE IT OFF.
--- NOTE | 2017-03-14 06:22 | NUR ---
PROTONIX PO. REQUESTING MORE PAIN MEDS BUT NOT TIME. NO OTHER CHANGES IN INITIAL ASSESSMENT. SCDs TO BLE. BED ALARM ON. CALL LIGHT IN REACH. WILL CONTINUE WITH PLAN OF CARE.
--- NOTE | 2017-03-14 07:39 | NUR ---
PRN NORCO ADMINISTERED AT THIS TIME FOR PAIN 10/10 TO RIGHT ARM. ICE PACK TO RIGHT ARM. NO IV ACCESS PT REFUSES. SCD'S AND BED ALARM ON. CALL LIGHT IN REACH. WILL CONTINUE WITH PLAN OF CARE.
[2017-03-14 08:21] VITALS: BP 114/55
[2017-03-14 09:51] LABS: BASOPHILS 0 % (0-2); EOSINOPHILS 0.3 % (0-7); IMMATURE GRANULOCYTES 0.2 % (0-5); LYMPHOCYTES 7.8 % (15-50); MCH 28.6 pg (26.0-34.0); MCHC 31.2 g/dL (31.0-37.0); MCV 91.5 fL (80.0-100.0); MEAN PLATELET VOLUME 8.8 fL (7.4-10.4); MONOCYTES 3.2 % (2-11); NEUTROPHILS 88.5 % (40-80); PLATELET COUNT 429 10x3/uL (130-400); RBC 3.43 10x6/uL (4.00-5.40); RDW 16.6 % (11.5-14.5); WBC 14.7 10x3/uL (4.8-10.8)
[2017-03-14 10:01] LABS: ALBUMIN 2.5 g/dL (3.4-5.0); ANION GAP 12.7 mmol/L (8-16); BILIRUBIN - TOTAL 0.4 mg/dL (0.2-1.3); CARBON DIOXIDE 26.7 mmol/L (21.0-32.0); CREATININE - SERUM 1.1 mg/dL (0.6-1.3); POTASSIUM - SERUM 5.4 mmol/L (3.5-5.1); PROTEIN - SERUM 6.4 g/dL (6.4-8.2)
[2017-03-14 11:58] VITALS: BP 127/65
--- NOTE | 2017-03-14 13:28 | NUR ---
PRN NORCO 10 ADMINISTERED AT THIS TIME FOR PAIN. FAMILY MEMBER AT BEDSIDE. WILL CONTINUE WITH PLAN OF CARE.
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
[2017-03-14 20:00] VITALS: BP 153/56
--- NOTE | 2017-03-15 02:00 | NUR ---
PT IN BED WITH NO DISTRESS. RESPIRATIONS EVEN AND UNLABORED. SIDE RAILS X 2. BED IS LOW. CALL LIGHT IN REACH.
[2017-03-15 04:00] VITALS: BP 149/59
[2017-03-15 05:58] LABS: BASOPHILS 0.2 % (0-2); EOSINOPHILS 0.6 % (0-7); HEMATOCRIT 28.1 % (36.0-48.0); HEMOGLOBIN 8.7 g/dL (12-16); IMMATURE GRANULOCYTES 0.2 % (0-5); LYMPHOCYTES 16.9 % (15-50); MCH 28.5 pg (26.0-34.0); MCV 92.1 fL (80.0-100.0); MEAN PLATELET VOLUME 8.4 fL (7.4-10.4); MONOCYTES 6.3 % (2-11); NEUTROPHILS 75.8 % (40-80); PLATELET COUNT 356 10x3/uL (130-400); RBC 3.05 10x6/uL (4.00-5.40); RDW 16.8 % (11.5-14.5); WBC 12.9 10x3/uL (4.8-10.8)
[2017-03-15 06:15] LABS: ALBUMIN 2.2 g/dL (3.4-5.0); ANION GAP 11.2 mmol/L (8-16); BILIRUBIN - TOTAL 0.29 mg/dL (0.2-1.3); CALCIUM 8.4 mg/dL (8.5-10.1); CARBON DIOXIDE 26.9 mmol/L (21.0-32.0); PROTEIN - SERUM 6.3 g/dL (6.4-8.2)
[2017-03-15 06:16] LABS: POTASSIUM - SERUM 4.1 mmol/L (3.5-5.1)
--- NOTE | 2017-03-15 07:42 | NUR ---
SLEEPING AT THIS TIME WITH RESPIRATIONS EVEN AND NON LABORED. CALL LIGHT IN REACH AND BED ALARM ON. WILL CONTINUE WITH PLAN OF CARE.
[2017-03-15 08:18] VITALS: BP 113/55
--- NOTE | 2017-03-15 13:29 | NUR ---
PRN NORCO ADMINISTERED FOR PAIN AT THIS TIME. IN BED WITH BED ALARM ON. CALL LIGHT IN REACH, WILL CONTINUE WITH PLAN OF CARE.
[2017-03-15 14:24] VITALS: BP 100/52
[2017-03-15 17:13] VITALS: BP 91/48
--- NOTE | 2017-03-15 18:09 | NUR ---
PRN NORCO ADMINISTERED
[2017-03-15 19:00] VITALS: BP 99/50
--- NOTE | 2017-03-15 19:05 | NUR ---
PT IS LYIMG IN BED WITH EYES CLOSED, HANDS FOLDED ACROSS CHEST, PT SROSE EASILY TO SOUND OF MY VOICE, BED IS IN LOW POSITION, CALL LIGHT IN REACH, NO SIGNS OF DISTRESS, WILL CONTINUE TO MONITOR PT AND FOLLOW PLAN OF CARE
[2017-03-16] VITALS (13 sets, daily range): BP systolic 78–108; BP diastolic 39–57
--- NOTE | 2017-03-16 02:00 | NUR ---
PT IN BED WITH NO DISTRESS. RESPIRATIONS EVEN AND UNLABORED. SIDE RAILS X 2. BED IS LOW. CALL LIGHT IS IN REACH.
[2017-03-16 04:58] LABS: BASOPHILS 0.1 % (0-2); EOSINOPHILS 1.5 % (0-7); IMMATURE GRANULOCYTES 0.1 % (0-5); LYMPHOCYTES 21.3 % (15-50); MCH 28.8 pg (26.0-34.0); MCHC 30.8 g/dL (31.0-37.0); MCV 93.5 fL (80.0-100.0); MONOCYTES 6.1 % (2-11); NEUTROPHILS 70.9 % (40-80); RBC 2.78 10x6/uL (4.00-5.40); RDW 16.9 % (11.5-14.5); WBC 9.8 10x3/uL (4.8-10.8)
[2017-03-16 05:10] LABS: PLATELET COUNT 269 10x3/uL (130-400)
[2017-03-16 05:32] LABS: ALBUMIN 2.1 g/dL (3.4-5.0); ANION GAP 7.8 mmol/L (8-16); BILIRUBIN - TOTAL 0.13 mg/dL (0.2-1.3); CALCIUM 8.2 mg/dL (8.5-10.1); CARBON DIOXIDE 29.5 mmol/L (21.0-32.0); CREATININE - SERUM 1.3 mg/dL (0.6-1.3); POTASSIUM - SERUM 4.3 mmol/L (3.5-5.1)
--- NOTE | 2017-03-16 08:33 | NUR ---
AWAKE AND ALERT. ORIENTED X3. C/O PAIN TO RIGHT ARM LEVEL 10. REQUESTED AND GIVEN ONE HYDROCODONE PO FOR SAME. WILL MONITOR. LUNGS ARE CLEAR BILATERALLY, NO COUGH NOTED. SKIN IS INTACT WITHOUT REDNESS EXCEPT INCISION TO RIGHT ARM WHICH HAS A DRY INTACT DRESSING IN PLACE. NEURO CHECKS WNL. RAYA PATNET WITH LIGHT PAULINA CLEAR URINE. BREAKFAST SERVED IN ROOM.
--- NOTE | 2017-03-16 10:54 | NUR ---
PRBC UP AT THIS TIME. VSS. BP ON THE LOW SIDE. WILL MONITOR.
--- NOTE | 2017-03-16 11:10 | NUR ---
TRANSFUSION CONTINUES WITHOUT COMPLICATIONS. VSS.
--- NOTE | 2017-03-16 11:31 | OP ---
PATIENT NAME: MARIAM ALFORD MEDICAL RECORD: [id number] :32 LOCATION:[id number] ADMISSION DATE:03/12/17 SURGEON: KIM CASTAÑEDA MD DATE OF OPERATION: 03/13/2017 Orthopedic Surgery Operative Note PREOPERATIVE DIAGNOSIS: Recurrent distal humeral fracture. POSTOPERATIVE DIAGNOSIS: Recurrent distal humeral fracture. PROCEDURE: Revision open reduction internal fixation of the right humerus. SURGEON: Kim Castañeda MD. ANESTHESIA: General. INTRAOPERATIVE COMPLICATIONS: Intraoperative fracture below the revised fixation causing for more internal fixation across the transcondylar axis. OPERATIVE SUMMARY IN DETAIL: After obtaining the appropriate preoperative orthopedic surgery consent as well as anesthetic consultation, evaluation and clearance, the patient was brought to the operating room and placed on the operating table in supine position. After general laryngeal mask was administered, the patient was placed in a left lateral decubitus position. All pressure points were well padded to include down leg peroneal pad as well as axillary roll. The patient was held firmly to the operating table using the vacuum pack suction system. Right upper extremity and shoulder were then prepped and draped in routine sterile fashion. Previously utilized midline incision was taken down to the previously utilized triceps split, this was split again, radial nerve was again identified and found to be in pretty good shape with contusion. Red rubber vessel loop was used to protect it. It is of note that the patient had a wrist drop prior to the index procedure, the fracture fragments were identified. Previously placed fixation was removed. The bone was then realigned and somewhat of a spiked into that position, given to the amount of comminution. Fragments were then placed in and around the area and a large frag plate was then placed across the fracture using a combination of singular interlocking screws around the periprosthesis as well as cables with screw fixation, combination of both locking and nonlocking screws distally. This was all done under fluoroscopic guidance. Taking a picture of this, the patient then sustained a transcondylar fracture at the bottom of the plate. For this reason, small plates were brought in and another plate was placed on the lateral aspect, resulting in anatomic jew of this fracture. Final radiographs were then cemented and sent to radiologist review. The wound was copiously irrigated and closed using #1 Vicryl for the triceps, #1 Vicryl for subcutaneous layer and finally skin shawn. Sterile dressings were applied and a posterior splint was applied. The patient was awakened, taken to recovery room in stable condition. All final needle and sponge counts were correct. TRANSINT:[id number] Voice Confirmation ID: [id number] DOCUMENT ID: [id number] OPERATIVE REPORT [id number] MARIAM ALFORD MD, KIM GERMAIN at 1131 CC: [id number] DICTATION DATE: 03/13/17 1646 VICTIM WITNESS ADMINISTRATOR: 03/14/17 0029 ADM IN [place] [id number] [place] [id number]
--- NOTE | 2017-03-16 12:31 | NUR ---
REQUESTED AND GIVEN ONE HYDROCODONE PO AT THIS TIME. FOR PAIN LEVEL 8 TO RIGHT SHOULDER. WILL MONITOR.
--- NOTE | 2017-03-16 14:30 | NUR ---
TRANSFUSION COMPLETED. NO SIGNS OF REACTION. BP IS VERY LOW WILL NOTIFY .
[2017-03-16 17:05] LABS: HEMATOCRIT 28.6 % (36.0-48.0); HEMOGLOBIN 8.8 g/dL (12-16)
--- NOTE | 2017-03-16 17:52 | NUR ---
SITTING UP IN BED EATING SUPPER. NS BOLUS UP AFTER BLOOD DRAWN. DENIES NEEDS. NO CHANGES NOTED.
--- NOTE | 2017-03-16 19:17 | NUR ---
PT LYING IN BED WITH EYES CLOSED AND HANDS LYING ON CHEST. PT BP LOW ALL DAY, TOOK MANUALLY, PT BP IS 98/54, PULSE IS 58, TEMP IS 98.9 RESP 14 AND O2 IS AT 95. PT RT HAND IS VERY SWOLLEN, PROPPED UP ON PILLOW. NO OTHER NEEDS AT THIS TIME. BED IN LOW POSITION, CALL LIGHT IN REACH
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
[2017-03-17 04:49] LABS: BASOPHILS 0.1 % (0-2); EOSINOPHILS 2.1 % (0-7); HEMATOCRIT 28.4 % (36.0-48.0); HEMOGLOBIN 8.7 g/dL (12-16); IMMATURE GRANULOCYTES 0.1 % (0-5); LYMPHOCYTES 18.6 % (15-50); MCH 28.2 pg (26.0-34.0); MCHC 30.6 g/dL (31.0-37.0); MCV 91.9 fL (80.0-100.0); MEAN PLATELET VOLUME 8.2 fL (7.4-10.4); MONOCYTES 5.6 % (2-11); NEUTROPHILS 73.5 % (40-80); PLATELET COUNT 282 10x3/uL (130-400); RBC 3.09 10x6/uL (4.00-5.40); RDW 17.9 % (11.5-14.5); WBC 9.5 10x3/uL (4.8-10.8)
--- NOTE | 2017-03-17 04:51 | NUR ---
ASSESSED, PT REMAINS IN ISOLATION WITH A RAYA CATH IN PLACE. NO DISTRESS NOTED. EASY RESPIRATIONS. THE BED IS LOW, RAILS UP X'S 2 WITH THE CALL LIGHT AT HAND.
[2017-03-17 05:21] LABS: ANION GAP 9.6 mmol/L (8-16); BILIRUBIN - TOTAL 0.2 mg/dL (0.2-1.3); CALCIUM 8.4 mg/dL (8.5-10.1); CARBON DIOXIDE 28.6 mmol/L (21.0-32.0); CREATININE - SERUM 1.1 mg/dL (0.6-1.3); POTASSIUM - SERUM 4.2 mmol/L (3.5-5.1); PROTEIN - SERUM 5.6 g/dL (6.4-8.2)
[2017-03-17 07:00] VITALS: BP 102/64
--- NOTE | 2017-03-17 07:10 | NUR ---
REPOORT RECEIVED FROM [employer]IATION ELECTRICAL TECHNICIAN NURSE. CALL LIGHT IN REACH.
--- NOTE | 2017-03-17 07:45 | NUR ---
PATIENT IN LOW MONTOYA POSITION RESTING QUIETLY. NO SIGNS OF DISTRESS NOTED. SIDE RAILS UPX 2. BED IN LOW POSITION. CALL LIGHT IN REACH.
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
[2017-03-17 08:33] VITALS: BP 125/58
--- NOTE | 2017-03-17 10:24 | NUR ---
VARUN PO WITH AM MEDS ADMINISTERED. CALL LIGHT IN REACH.
--- NOTE | 2017-03-17 12:05 | NUR ---
IN CHAIR PER PT. REQUESTING PAIN PILL BUT TOO SOON FOR ADMINISTRATON.
[2017-03-17 12:48] VITALS: BP 113/52
--- NOTE | 2017-03-17 12:59 | NUR ---
cm attempted to call raven Rodriguez (both numbers) to let him know that his mother was being discharged back to [facility], but I did not get answer.
--- NOTE | 2017-03-17 14:42 | NUR ---
C/O PAIN OIF 10. NORCO PO. CALL LIGHT IN REACH.
--- NOTE | 2017-03-17 15:20 | NUR ---
RAYA CATH DC'D WITH TIP INTACT
--- NOTE | 2017-03-17 15:48 | NUR ---
REPORT CALLED TO KAREN ALVAREZ, AT [facility]. DC'D TO AMBULANCE VIA STRETCHER.
== END 2017-03-17 15:50 | disposition home health service (06) | DRG 492 ==
LOC: D.ER 15:59 → D.MS 17:34
PROVIDERS: Emergency Medicine; Family Medicine Adult Medicine; Physician Assistant Medical; ADMIT Orthopaedic Surgery
PROC: 0PSF04Z Reposition Right Humeral Shaft with Internal Fixation Device, Open Approach (ICD-10-PCS; principal; 2017-03-12)
DX: S42.351A Displaced comminuted fracture of shaft of humerus, right arm, initial encounter for closed fracture (principal); R53.2 Functional quadriplegia; D62 Acute posthemorrhagic anemia; N39.0 Urinary tract infection, site not specified; W19.XXXA Unspecified fall, initial encounter; Y92.129 Unspecified place in nursing home as the place of occurrence of the external cause; B96.20 Unspecified Escherichia coli [E. coli] as the cause of diseases classified elsewhere; I10 Essential (primary) hypertension; I48.91 Unspecified atrial fibrillation; E78.5 Hyperlipidemia, unspecified; I09.9 Rheumatic heart disease, unspecified; D63.8 Anemia in other chronic diseases classified elsewhere; M21.331 Wrist drop, right wrist